=== PATIENT | female | born 1990 | race Caucasian/White ===

== ENCOUNTER → 2016-08-16 | Outpatient (CLI) | payer BC ==
[~2016-08-16] MED LIST: BACL10TA PO; ERGO5000 PO; GABA300C2 PO; IBUP200C PO; IMIT50TA PO; NEUR600T PO; NICO14PA EXT; ORTH7TAB PO; TRAZ10TA PO; TYLE325T5 PO; [UNRECOGNIZED DRUG - CODE] PO; [UNRECOGNIZED DRUG - OTHER] PO
[2016-08-16 16:57] LABS: BASO # 0.1 K/mm3 (0.0-0.2); BASO % 1.2 % (0.0-1.0); EOS # 0.2 K/mm3 (0.0-0.50); EOS % 2.6 % (0.0-3.0); LARGE UNSTAINED CELL # 0.1 K/mm3 (0.0-0.4); LARGE UNSTAINED CELL % 1.2 % (0.0-4.0); LYMPH # 2.8 K/mm3 (1.5-6.5); LYMPH % 42.4 % (24.0-44.0); MEAN CORPUSCULAR HEMOGLOBIN 31.8 pg (27.0-33.0); MEAN CORPUSCULAR HGB CONC 33.4 g/dl (32.0-36.5); MEAN CORPUSCULAR VOLUME 95.2 fl (80.0-96.0); MONO # 0.4 K/mm3 (0.0-0.8); MONO % 5.4 % (0.0-5.0); NEUTROPHILS % 47.2 % (36.0-66.0); PLATELET COUNT, AUTOMATED 164 k/mm3 (150-450); RED CELL DISTRIBUTION WIDTH 12.7 % (11.5-14.5); WHITE BLOOD COUNT 6.4 K/mm3 (4.0-10.0)
[2016-08-16 17:16] LABS: ALBUMIN 4.2 GM/DL (3.2-5.2); ALBUMIN/GLOBULIN RATIO 1.68 (1.00-1.93); ALKALINE PHOSPHATASE 66 U/L (45-117); ALT/SGPT 19 U/L (12-78); ANION GAP 7 MEQ/L (8-16); AST/SGOT 7 U/L (15-37); BILIRUBIN,TOTAL 0.2 MG/DL (0.2-1.0); BLOOD UREA NITROGEN 12 MG/DL (7-18); CARBON DIOXIDE LEVEL 27 MEQ/L (21-32); CHLORIDE LEVEL 110 MEQ/L (98-107); CREATININE FOR GFR 0.85 MG/DL (0.55-1.02); GLOMERULAR FILTRATION RATE > 60.0 (>60); GLUCOSE, FASTING 83 MG/DL (70-105); POTASSIUM SERUM 3.8 MEQ/L (3.5-5.1); SODIUM LEVEL 144 MEQ/L (136-145); TOTAL PROTEIN 6.7 GM/DL (6.4-8.2)
[2016-08-16 17:42] LABS: VITAMIN B12 LEVEL 301 PG/ML (247-911)
--- NOTE | 2016-08-16 20:44 | REP ---
LUMBAR SPINE, COMPLETE: 08/16/2016. Clinical history: Acute left-sided low back pain. No prior study. Findings: Five views are provided. Pedicles, spinous and transverse processes are intact without scoliosis. SI joints, sacral ala and foramina were unremarkable. Posterior rib articulations in the lower thoracic region are normal. I see no spondylolysis or spondylolisthesis. The normal lordosis is maintained. There is no compression fracture, disc space narrowing or destructive lesion. Impression: 1. Negative lumbar spine series. Signed by Beto Wilkes MD 08/17/2016 08:37 A
[2016-08-17 11:22] LABS: PRETREATED FOLATE FOR RBCFOL 8.3 NG/ML
== END ==
LOC: M LAB 16:26
PROVIDERS: ATTEND Physician Assistant Medical
DX: E55.9 Vitamin D deficiency, unspecified (principal)

== ENCOUNTER → 2016-10-27 | Outpatient (CLI) | payer BC | LOC: M RAD 12:23 | PROVIDERS: ATTEND Physician Assistant Medical | DX: M54.30 Sciatica, unspecified side (principal); M54.5 Low back pain ==

== ENCOUNTER → 2016-12-28 | Outpatient (REF) | payer BC ==
[2016-12-28 13:13] LABS: ALBUMIN 4.4 GM/DL (3.2-5.2); ALBUMIN/GLOBULIN RATIO 1.63 (1.00-1.93); ALKALINE PHOSPHATASE 51 U/L (45-117); ALT/SGPT 22 U/L (12-78); ANION GAP 8 MEQ/L (8-16); AST/SGOT 12 U/L (15-37); BILIRUBIN,TOTAL 0.3 MG/DL (0.2-1.0); BLOOD UREA NITROGEN 12 MG/DL (7-18); CALCIUM LEVEL 9.1 MG/DL (8.5-10.1); CARBON DIOXIDE LEVEL 26 MEQ/L (21-32); CHLORIDE LEVEL 108 MEQ/L (98-107); CREATININE FOR GFR 0.82 MG/DL (0.55-1.02); FERRITIN 27 NG/ML (8-252); GLOMERULAR FILTRATION RATE > 60.0 (>60); GLUCOSE, FASTING 74 MG/DL (70-105); SODIUM LEVEL 142 MEQ/L (136-145); TOTAL IRON BINDING CAPACITY 378 UG/DL (250-450); TOTAL PROTEIN 7.1 GM/DL (6.4-8.2)
[2016-12-28 13:20] LABS: VITAMIN B12 LEVEL 474 PG/ML (247-911)
[2016-12-28 13:28] LABS: BASO % 0.4 % (0.0-1.0); EOS # 0.1 K/mm3 (0.0-0.50); LARGE UNSTAINED CELL # 0.1 K/mm3 (0.0-0.4); LARGE UNSTAINED CELL % 1.2 % (0.0-4.0); LYMPH # 2.7 K/mm3 (1.5-6.5); LYMPH % 40.2 % (24.0-44.0); MEAN CORPUSCULAR HEMOGLOBIN 33.1 pg (27.0-33.0); MEAN CORPUSCULAR HGB CONC 34.2 g/dl (32.0-36.5); MEAN CORPUSCULAR VOLUME 96.7 fl (80.0-96.0); MONO # 0.3 K/mm3 (0.0-0.8); MONO % 5.1 % (0.0-5.0); NEUTROPHILS # 3.4 K/mm3 (1.8-7.7); NEUTROPHILS % 51.1 % (36.0-66.0); PLATELET COUNT, AUTOMATED 189 k/mm3 (150-450); RED CELL DISTRIBUTION WIDTH 12.1 % (11.5-14.5); WHITE BLOOD COUNT 6.6 K/mm3 (4.0-10.0)
== END ==
LOC: M SFHCPLAZ 10:27
PROVIDERS: ATTEND Family Medicine
DX: E53.8 Deficiency of other specified B group vitamins (principal); E55.9 Vitamin D deficiency, unspecified

== ENCOUNTER → 2017-02-21 | Outpatient (REF) | payer BC ==
[~2017-02-21] MED LIST changes: +CELE10TA PO; +IBUP-1022 PO; +MEDR1VL IM; +NORT25CA2 PO; +ZOFR4TAB3 PO
[2017-02-21 17:22] LABS: BASO % 0.4 % (0.0-1.0); EOS # 0.1 K/mm3 (0.0-0.50); EOS % 2.1 % (0.0-3.0); LARGE UNSTAINED CELL # 0.1 K/mm3 (0.0-0.4); LARGE UNSTAINED CELL % 1.7 % (0.0-4.0); LYMPH # 2.2 K/mm3 (1.5-6.5); LYMPH % 36.9 % (24.0-44.0); MEAN CORPUSCULAR HEMOGLOBIN 32.9 pg (27.0-33.0); MEAN CORPUSCULAR VOLUME 96.7 fl (80.0-96.0); MONO # 0.4 K/mm3 (0.0-0.8); MONO % 6.2 % (0.0-5.0); NEUTROPHILS # 3.1 K/mm3 (1.8-7.7); NEUTROPHILS % 52.6 % (36.0-66.0); PLATELET COUNT, AUTOMATED 178 k/mm3 (150-450); RED CELL DISTRIBUTION WIDTH 12.1 % (11.5-14.5)
[2017-02-21 17:29] LABS: INR 0.88
[2017-02-21 18:01] LABS: ALBUMIN 4.3 GM/DL (3.2-5.2); ALBUMIN/GLOBULIN RATIO 1.59 (1.00-1.93); ALKALINE PHOSPHATASE 68 U/L (45-117); ALT/SGPT 21 U/L (12-78); ANION GAP 5 MEQ/L (8-16); AST/SGOT 11 U/L (15-37); BILIRUBIN,TOTAL 0.2 MG/DL (0.2-1.0); BLOOD UREA NITROGEN 10 MG/DL (7-18); CALCIUM LEVEL 9.3 MG/DL (8.5-10.1); CARBON DIOXIDE LEVEL 29 MEQ/L (21-32); CHLORIDE LEVEL 109 MEQ/L (98-107); CREATININE FOR GFR 0.71 MG/DL (0.55-1.02); GLOMERULAR FILTRATION RATE > 60.0 (>60); GLUCOSE, FASTING 87 MG/DL (70-105); POTASSIUM SERUM 4.3 MEQ/L (3.5-5.1); SODIUM LEVEL 143 MEQ/L (136-145)
== END ==
LOC: M SFHCPLAZ 15:53
PROVIDERS: ATTEND Family Medicine
DX: M47.816 Spondylosis without myelopathy or radiculopathy, lumbar region (principal)

== ENCOUNTER → 2017-05-07 | Outpatient (REF) | payer BC | LOC: M SFHCPLAZ 11:49 | PROVIDERS: ATTEND Family Medicine | DX: R35.0 Frequency of micturition (principal) ==

== ENCOUNTER → 2017-05-08 | Outpatient (CLI) | payer BC ==
--- NOTE | 2017-05-09 15:31 | REP ---
Clinical: Iliotibial band syndrome. Technique: Neutral and frog lateral views of the left hip. Findings: No acute fracture dislocation. No significant arthritic degenerative changes. No significant joint space narrowing. No spurring or osteophyte formation. No periarticular calcifications. Impression: Normal left hip radiographs. Signed by Eligio Swenson MD 05/09/2017 03:22 P
== END ==
LOC: M RAD 10:15
PROVIDERS: ATTEND Family Medicine
DX: M76.32 Iliotibial band syndrome, left leg (principal)

== ENCOUNTER 2017-05-09 11:21 | Emergency (ER) | payer BC ==
[~2017-05-09] VITALS: Ht 154.9 cm; Wt 65.9 kg
[~2017-05-09 11:21] MED LIST changes: -CELE10TA PO; -IBUP-1022 PO; -MEDR1VL IM; -NORT25CA2 PO; -ZOFR4TAB3 PO
[2017-05-09] MEDS ORDERED: CELE10TA PO (11:30)
[2017-05-09] MEDS ORDERED: IBUP-1022 PO (11:30)
[2017-05-09] MEDS ORDERED: NORT25CA2 PO (11:30)
[2017-05-09] MEDS ORDERED: MEDR1VL IM (11:30)
[2017-05-09] MEDS ORDERED: NS 1,000 ML IV ONE (12:15)
[2017-05-09] MEDS: ACETAMINOPHEN 325 MG TAB PO ONE ×2 (12:15→12:36)
[2017-05-09] MEDS ORDERED: KETOROLAC 30 MG/ML VIAL (J1885) IV ONE (12:15)
[2017-05-09] MEDS ORDERED: METOCLOPRAMIDE INJ 10MG/2ML VIAL (J2765) IV ONE (12:30)
[2017-05-09 12:36] LABS: BASO % 0.3 % (0.0-1.0); EOS # 0.2 10^3/uL (0.0-0.50); IMMATURE GRANULOCYTE % 0.1 % (0-0); LYMPH # 3.1 10^3/uL (1.5-6.5); LYMPH % 38.4 % (24.0-44.0); MEAN CORPUSCULAR HEMOGLOBIN 32.8 pg (27.0-33.0); MEAN CORPUSCULAR HGB CONC 34.1 g/dl (32.0-36.5); MONO # 0.8 10^3/uL (0.0-0.8); MONO % 10.1 % (0.0-5.0); NEUTROPHILS # 3.9 10^3/uL (1.8-7.7); NEUTROPHILS % 49.1 % (36.0-66.0); PLATELET COUNT, AUTOMATED 200 10^3/uL (150-450); RED CELL DISTRIBUTION WIDTH 12.2 % (11.5-14.5)
[2017-05-09 13:11] LABS: ERYTHROCYTE SEDIMENTATION RATE 2 mm/hr (0-20)
[2017-05-09 13:13] LABS: ANION GAP 8 MEQ/L (8-16); BLOOD UREA NITROGEN 12 MG/DL (7-18); CALCIUM LEVEL 9.3 MG/DL (8.5-10.1); CARBON DIOXIDE LEVEL 26 MEQ/L (21-32); CHLORIDE LEVEL 109 MEQ/L (98-107); CREATININE FOR GFR 0.91 MG/DL (0.55-1.02); GLOMERULAR FILTRATION RATE > 60.0 (>60); GLUCOSE, FASTING 86 MG/DL (70-105); POTASSIUM SERUM 3.3 MEQ/L (3.5-5.1); SODIUM LEVEL 143 MEQ/L (136-145)
[2017-05-09] MEDS ORDERED: ONDANSETRON 4MG/2ML VIAL (J2405) IV ONE (14:30)
[2017-05-09] MEDS ORDERED: SUMAtriptan SUCCINATE 6 MG/0.5 ML VIAL SC ONE (15:30)
[2017-05-09] MEDS ORDERED: ACETAMINOPHEN 325 MG TAB PO ONE (15:30)
[2017-05-09 15:44] VITALS: BP 104/67
[2017-05-09] MEDS ORDERED: ZOFR4TAB3 PO (16:07)
== END 2017-05-09 16:13 | disposition home or self-care (01) ==
LOC: M ED 11:21
DX: G43.909 Migraine, unspecified, not intractable, without status migrainosus (principal); Z72.0 Tobacco use
CPT/HCPCS: 80048; 82550; 85025; 85652; 86140; 96361; 96372; 96374; 96375; 99283; J1885; J2405; J2765

== ENCOUNTER → 2017-06-14 | Outpatient (CLI) | payer BC ==
[~2017-06-14] MED LIST changes: +CELE10TA PO; +IBUP-1022 PO; +MEDR1VL IM; +NORT25CA2 PO; +PROHANCE 279.3MG/ML 15ML VIAL (A9576) As Ordered ONE; +ZOFR4TAB3 PO
--- NOTE | 2017-06-14 15:54 | REP ---
MRI THORACIC SPINE WITHOUT AND WITH CONTRAST: HISTORY: Multiple sclerosis. CONTRAST: ProHance 13 mL. COMPARISON: 04/08/2013 The examination is limited secondary to motion. There is no disc bulge or herniation. The spinal canal and the neural foramina are patent. The spinal cord is normal in signal intensity. There is no abnormal enhancement. A hemangioma is present in the T12 vertebral body. Normal signal intensity is present in the remaining thoracic vertebral bodies. IMPRESSION: Normal study. Signed by Masood Montgomery MD 06/14/2017 04:12 P
--- NOTE | 2017-06-14 16:28 | REP ---
MR BRAIN WITHOUT AND WITH CONTRAST: HISTORY: Multiple sclerosis. CONTRAST: ProHance 13 mL. COMPARISON: 05/29/2016 Multiple areas of increased signal intensity on T2-weighted images are present in the periventricular and subcortical white matter as well as corpus callosum. These are unchanged compared to the previous study. There are no new areas of abnormal signal intensity. There are no area of abnormal signal intensity in the brain stem or cerebellum. There is no intraparenchymal hemorrhage, mass or midline shift. An 8 mm pineal cyst is present. The ventricular system is normal in appearance. There is no extracerebral collection. The sinuses are clear. IMPRESSION:The above findings are consistent with multiple sclerosis that are unchanged compared to the previous study. Signed by Masood Montgomery MD 06/14/2017 04:45 P
--- NOTE | 2017-06-14 16:51 | REP ---
MR CERVICAL SPINE WITHOUT AND WITH CONTRAST: HISTORY: Multiple sclerosis. CONTRAST: ProHance 13 mL. COMPARISON: 05/31/2014 A disc bulge is present at the C4-5 level. There is minimal effacement of the thecal sac without spinal cord compression. The C4 neural foramina are patent. A disc bulge is present at the C5-6 level. There is minimal effacement of the thecal sac. Without spinal cord compression. A disc bulge is present at the C6-7 level. There is minimal effacement of the thecal sac without spinal cord compression. The C6 neural foramina are patent. There is no other disc bulge or herniation. The remaining neural foramina are patent. There are 2 small ill-defined areas of increased signal intensity on T2 weighted images in the spinal cord at the C2 and C2-3 levels. The focus is increased signal intensity at the C2-3 level appears unchanged compared to the previous study. The focus at the C2 level was not seen in the previous examination. There is no enhancement with contrast. The spinal cord is normal in size. Normal signal intensity is present in the cervical vertebral bodies. IMPRESSION: 1. There is cervical spondylosis at the C4-5 through C6-7 levels without spinal cord compression. The disc bulge at the C6-7 level is a new finding. 1. There are two small ill-defined area of increased signal intensity in the spinal cord at the C2 and C2-3 level. The lesion at the C2-3 level is unchanged in size. The lesion at the C2 level was not seen in the previous examination and represents a new lesion. Signed by Masood Montgomery MD 06/14/2017 04:57 P
== END ==
LOC: M RAD 12:40
PROVIDERS: ATTEND Physician Assistant Medical
DX: G35 Multiple sclerosis (principal); M47.812 Spondylosis without myelopathy or radiculopathy, cervical region; M50.823 Other cervical disc disorders at C6-C7 level; M50.81 Other cervical disc disorders, high cervical region
CPT/HCPCS: 70553; 72156; 72157; A9576

== ENCOUNTER → 2017-07-30 | Outpatient (CLI) | payer BC ==
[~2017-07-30] MED LIST changes: -BACL10TA PO; -CELE10TA PO; -ERGO5000 PO; -GABA300C2 PO; -IBUP-1022 PO; -IBUP200C PO; -IMIT50TA PO; -MEDR1VL IM; -NEUR600T PO; -NICO14PA EXT; -NORT25CA2 PO; -ORTH7TAB PO; +PROHANCE 279.3MG/ML 15ML VIAL (A9576) As Ordered; -PROHANCE 279.3MG/ML 15ML VIAL (A9576) As Ordered ONE; -TRAZ10TA PO; -TYLE325T5 PO; -ZOFR4TAB3 PO; -[UNRECOGNIZED DRUG - CODE] PO; -[UNRECOGNIZED DRUG - OTHER] PO
== END ==
LOC: M RAD 11:12
DX: M79.1 Myalgia (principal); M46.1 Sacroiliitis, not elsewhere classified; M54.16 Radiculopathy, lumbar region; M96.1 Postlaminectomy syndrome, not elsewhere classified; M51.26 Other intervertebral disc displacement, lumbar region; M51.27 Other intervertebral disc displacement, lumbosacral region
CPT/HCPCS: A9576

== ENCOUNTER → 2018-01-09 | Outpatient (REF) | payer BC ==
[2018-01-09 16:42] LABS: BASO % 0.4 % (0.0-1.0); EOS # 0.1 10^3/uL (0.0-0.50); EOS % 1.9 % (0.0-3.0); HEMATOCRIT 43.5 % (36.0-47.0); HEMOGLOBIN 14.7 g/dl (12.0-15.5); IMMATURE GRANULOCYTE % 0.2 % (0-3.0); LYMPH # 2.2 10^3/uL (1.5-6.5); LYMPH % 38.9 % (24.0-44.0); MEAN CORPUSCULAR HGB CONC 33.8 g/dl (32.0-36.5); MEAN CORPUSCULAR VOLUME 94.8 fl (80.0-96.0); MONO # 0.4 10^3/uL (0.0-0.8); MONO % 6.3 % (0.0-5.0); NEUTROPHILS % 52.3 % (36.0-66.0); PLATELET COUNT, AUTOMATED 180 10^3/uL (150-450); RED BLOOD COUNT 4.59 10^6/uL (4.00-5.40); RED CELL DISTRIBUTION WIDTH 12.7 % (11.5-14.5); RETIC HEMOGLOBIN EQUIVALENT 35.9 pg (24-36); RETICULOCYTE # 45.4 10^9/L (17-77); WHITE BLOOD COUNT 5.7 10^3/uL (4.0-10.0)
[2018-01-09 16:46] LABS: PTH INTACT 19.3 PG/ML (18.5-88.0); TOTAL 25(OH) VITAMIN D 17.3 NG/ML (30.0-100.0)
[2018-01-09 16:52] LABS: ALBUMIN 4.5 GM/DL (3.2-5.2); ALBUMIN/GLOBULIN RATIO 1.67 (1.00-1.93); ALKALINE PHOSPHATASE 55 U/L (45-117); ALT/SGPT 22 U/L (12-78); ANION GAP 10 MEQ/L (8-16); AST/SGOT 14 U/L (7-37); BILIRUBIN,TOTAL 0.4 MG/DL (0.2-1.0); BLOOD UREA NITROGEN 11 MG/DL (7-18); CALCIUM LEVEL 8.9 MG/DL (8.5-10.1); CARBON DIOXIDE LEVEL 26 MEQ/L (21-32); CHLORIDE LEVEL 107 MEQ/L (98-107); CHOLESTEROL LEVEL 128 MG/DL (<200); CHOLESTEROL RISK RATIO 3.047 (<5); CREATININE FOR GFR 0.82 MG/DL (0.55-1.30); FREE T4 1.01 NG/DL (0.76-1.46); GLOMERULAR FILTRATION RATE > 60.0 (>60); GLUCOSE, FASTING 78 MG/DL (70-100); HDL CHOLESTEROL 42 MG/DL (>40); LDL CHOLESTEROL 72.6 MG/DL (<100); LIPASE 72 U/L (73-393); NON-HDL-C 86 MG/DL; POTASSIUM SERUM 4.1 MEQ/L (3.5-5.1); SODIUM LEVEL 143 MEQ/L (136-145); TOTAL PROTEIN 7.2 GM/DL (6.4-8.2); TRIGLYCERIDES LEVEL 67 MG/DL (<150)
[2018-01-09 16:56] LABS: ESTIMATED AVERAGE GLUCOSE 94 MG/DL (60-110); HEMOGLOBIN A1c 4.9 %
[2018-01-09 18:54] LABS: HEMATOCRIT 43.5 % (36.0-47.0)
[2018-01-10 12:47] LABS: PRETREATED FOLATE FOR RBCFOL 10.1 NG/ML; RBC FOLATE 487.6 NG/ML (280-791)
[2018-01-11 14:10] LABS: H PYLORI SERUM QUANT IgG ABY 0.17 (0.00-0.79)
[2018-01-13 13:04] LABS: ALBUMIN 4.68 GM/DL (3.29-5.55); ALPHA-1-GLOBULIN % 4.2 % (2.9-4.9); ALPHA-2-GLOBULINS % 9.7 % (7.1-11.8); BETA-1-GLOBULINS 0.48 GM/DL (0.28-0.60); BETA-1-GLOBULINS % 6.7 % (4.7-7.2); BETA-2-GLOBULINS 0.38 GM/DL (0.19-0.55); BETA-2-GLOBULINS % 5.3 % (3.2-6.5); GAMMA GLOBULIN % 9.1 % (11.1-18.8); GAMMA GLOBULINS 0.66 GM/DL (0.65-1.58)
== END ==
LOC: M SFHCPLAZ 12:20
DX: R10.13 Epigastric pain (principal); E53.8 Deficiency of other specified B group vitamins; E55.9 Vitamin D deficiency, unspecified; E66.3 Overweight
CPT/HCPCS: 83525

== ENCOUNTER → 2018-02-11 | Outpatient (CLI) | payer BC ==
[~2018-02-11] MED LIST changes: +E-Z-GAS II EFFERVESCENT PACKET (SODIUM BICARB./CITRIC ACID/SIMETHICONE) As Ordered; +E-Z-HD 98% w/w 340GM SUSP BTL As Ordered; +E-Z-PAQUE 96% w/w SUSP 176GM BTL As Ordered; -PROHANCE 279.3MG/ML 15ML VIAL (A9576) As Ordered
== END ==
LOC: M RAD 09:24
DX: R10.13 Epigastric pain (principal)
CPT/HCPCS: 74241

== ENCOUNTER → 2018-03-20 | Outpatient (CLI) | payer BC | LOC: M RAD 06:57 | DX: R10.13 Epigastric pain (principal) | CPT/HCPCS: 76705 ==

== ENCOUNTER → 2018-04-15 | Outpatient (CLI) | payer BC | LOC: M RAD 07:35 | DX: R10.11 Right upper quadrant pain (principal) | CPT/HCPCS: J2805 ==

== ENCOUNTER → 2018-08-04 | Outpatient (CLI) | payer BC ==
[~2018-08-04] MED LIST changes: +BACL10TA PO; +CELE10TA PO; -E-Z-GAS II EFFERVESCENT PACKET (SODIUM BICARB./CITRIC ACID/SIMETHICONE) As Ordered; -E-Z-HD 98% w/w 340GM SUSP BTL As Ordered; -E-Z-PAQUE 96% w/w SUSP 176GM BTL As Ordered; +ERGO5000 PO; +GABA300C2 PO; +IBUP-1022 PO; +IBUP200C PO; +IMIT50TA PO; +MEDR1VL IM; +NEUR600T PO; +NICO14PA EXT; +NORT25CA2 PO; +ORTH7TAB PO; +TRAZ10TA PO; +TYLE325T5 PO; +ZOFR4TAB14 PO; +[UNRECOGNIZED DRUG - CODE] PO; +[UNRECOGNIZED DRUG - OTHER] PO
[2018-08-04 10:47] LABS: BASO % 0.4 % (0.0-1.0); EOS # 0.1 10^3/uL (0.0-0.50); EOS % 1.6 % (0.0-3.0); HEMATOCRIT 43.6 % (36.0-47.0); HEMOGLOBIN 14.5 g/dl (12.0-15.5); LYMPH # 2.7 10^3/uL (1.5-6.5); LYMPH % 36.5 % (24.0-44.0); MEAN CORPUSCULAR HEMOGLOBIN 31.9 pg (27.0-33.0); MEAN CORPUSCULAR HGB CONC 33.3 g/dl (32.0-36.5); MONO # 0.6 10^3/uL (0.0-0.8); MONO % 7.7 % (0.0-5.0); NEUTROPHILS # 3.9 10^3/uL (1.8-7.7); NEUTROPHILS % 53.4 % (36.0-66.0); PLATELET COUNT, AUTOMATED 193 10^3/uL (150-450); RED BLOOD COUNT 4.54 10^6/uL (4.00-5.40); WHITE BLOOD COUNT 7.3 10^3/uL (4.0-10.0)
[2018-08-04 11:18] LABS: ALBUMIN 4.1 GM/DL (3.2-5.2); ALT/SGPT 28 U/L (12-78); BILIRUBIN,TOTAL 0.2 MG/DL (0.2-1.0); BLOOD UREA NITROGEN 14 MG/DL (7-18); CALCIUM LEVEL 8.8 MG/DL (8.5-10.1); CARBON DIOXIDE LEVEL 30 MEQ/L (21-32); CHLORIDE LEVEL 106 MEQ/L (98-107); CHOLESTEROL LEVEL 150 MG/DL (<200); CHOLESTEROL RISK RATIO 2.419 (<5); CREATININE FOR GFR 0.79 MG/DL (0.55-1.30); FREE T4 0.79 NG/DL (0.76-1.46); GLOMERULAR FILTRATION RATE > 60.0 (>60); GLUCOSE, FASTING 118 MG/DL (70-100); HDL CHOLESTEROL 62 MG/DL (>40); LDL CHOLESTEROL 73 MG/DL (<100); NON-HDL-C 88 MG/DL; POTASSIUM SERUM 4.3 MEQ/L (3.5-5.1); SODIUM LEVEL 140 MEQ/L (136-145); TOTAL PROTEIN 6.8 GM/DL (6.4-8.2); TRIGLYCERIDES LEVEL 77 MG/DL (<150)
[2018-08-04 11:41] LABS: HEMOGLOBIN A1c 5.3 %; PTH INTACT 19.7 PG/ML (18.5-88.0); TOTAL 25(OH) VITAMIN D 26.2 NG/ML (30.0-100.0); VITAMIN B12 LEVEL 598 PG/ML (247-911)
== END ==
LOC: M LAB 10:12
PROVIDERS: ATTEND Family Medicine
DX: G35 Multiple sclerosis (principal)

== ENCOUNTER → 2018-08-04 | Outpatient (CLI) | payer BC ==
[2018-08-04 10:48] LABS: BASO % 0.6 % (0.0-1.0); EOS # 0.1 10^3/uL (0.0-0.50); EOS % 1.5 % (0.0-3.0); HEMATOCRIT 42.6 % (36.0-47.0); HEMOGLOBIN 14.3 g/dl (12.0-15.5); LYMPH # 2.7 10^3/uL (1.5-6.5); MEAN CORPUSCULAR HEMOGLOBIN 31.7 pg (27.0-33.0); MEAN CORPUSCULAR HGB CONC 33.6 g/dl (32.0-36.5); MEAN CORPUSCULAR VOLUME 94.5 fl (80.0-96.0); MONO # 0.6 10^3/uL (0.0-0.8); MONO % 7.6 % (0.0-5.0); NEUTROPHILS # 3.8 10^3/uL (1.8-7.7); NEUTROPHILS % 52.9 % (36.0-66.0); PLATELET COUNT, AUTOMATED 202 10^3/uL (150-450); RED BLOOD COUNT 4.51 10^6/uL (4.00-5.40); WHITE BLOOD COUNT 7.2 10^3/uL (4.0-10.0)
[2018-08-04 11:13] LABS: ALBUMIN 4.1 GM/DL (3.2-5.2); ALT/SGPT 27 U/L (12-78); BILIRUBIN,DIRECT < 0.1 MG/DL (0.0-0.2); BILIRUBIN,TOTAL 0.2 MG/DL (0.2-1.0); TOTAL PROTEIN 6.9 GM/DL (6.4-8.2)
== END ==
LOC: M LAB 10:17
PROVIDERS: ATTEND Physician Assistant Medical
DX: G35 Multiple sclerosis (principal)

== ENCOUNTER → 2018-11-20 | Outpatient (CLI) | payer BC ==
[~2018-11-20] MED LIST changes: +NICO14DI20 EXT; -NICO14PA EXT; +TRAZ-164 PO; -TRAZ10TA PO
--- NOTE | 2018-11-20 17:42 | REP ---
REASON: Pain times two months. No priors. No trauma. FINDINGS: No acute fracture or destructive osseous lesion. The mortise is intact. Electronically Signed by Richar Reid DO 11/20/2018 05:58 P
--- NOTE | 2018-11-20 17:56 | REP ---
REASON FOR EXAMINATION: Foot pain times two months. No trauma. PRIORS: None. FINDINGS: The joint spaces are symmetric and relatively well maintained. There is no evidence of acute fracture or destructive osseous lesion. IMPRESSION: Negative. Electronically Signed by Richar Reid DO 11/20/2018 05:59 P
== END ==
LOC: M RAD 16:38
PROVIDERS: ATTEND Family Medicine
DX: S93.492A Sprain of other ligament of left ankle, initial encounter (principal); X58.XXXA Exposure to other specified factors, initial encounter; Y92.89 Other specified places as the place of occurrence of the external cause

== ENCOUNTER → 2019-02-06 | Outpatient (REF) | payer BC ==
[2019-02-06 17:22] LABS: BASO % 0.5 % (0.0-1.0); EOS # 0.1 10^3/uL (0.0-0.50); EOS % 0.8 % (0.0-3.0); HEMATOCRIT 42.8 % (36.0-47.0); HEMOGLOBIN 14.1 g/dl (12.0-15.5); LYMPH # 2.3 10^3/uL (1.5-6.5); LYMPH % 36.1 % (24.0-44.0); MEAN CORPUSCULAR HGB CONC 32.9 g/dl (32.0-36.5); MEAN CORPUSCULAR VOLUME 97.1 fl (80.0-96.0); MONO # 0.8 10^3/uL (0.0-0.8); MONO % 12.5 % (0.0-5.0); NEUTROPHILS # 3.1 10^3/uL (1.8-7.7); NEUTROPHILS % 49.9 % (36.0-66.0); PLATELET COUNT, AUTOMATED 229 10^3/uL (150-450); RED BLOOD COUNT 4.41 10^6/uL (4.00-5.40); WHITE BLOOD COUNT 6.2 10^3/uL (4.0-10.0)
[2019-02-06 17:30] LABS: HEMATOCRIT 42.8 % (36.0-47.0)
[2019-02-06 17:47] LABS: ALBUMIN 4.6 GM/DL (3.2-5.2); ALT/SGPT 47 U/L (12-78); BILIRUBIN,TOTAL 0.7 MG/DL (0.2-1.0); BLOOD UREA NITROGEN 11 MG/DL (7-18); CALCIUM LEVEL 9.6 MG/DL (8.5-10.1); CARBON DIOXIDE LEVEL 29 MEQ/L (21-32); CHLORIDE LEVEL 104 MEQ/L (98-107); CPK CREATINE PHOSPHOKINASE 113 U/L (26-192); CREATININE FOR GFR 0.63 MG/DL (0.55-1.30); GLOMERULAR FILTRATION RATE > 60.0 (>60); GLUCOSE, FASTING 67 MG/DL (70-100); POTASSIUM SERUM 4.2 MEQ/L (3.5-5.1); SODIUM LEVEL 139 MEQ/L (136-145); TOTAL PROTEIN 7.7 GM/DL (6.4-8.2); VALPROIC ACID (DEPAKOTE) 15.7 UG/ML (50.0-100.0)
[2019-02-06 17:57] LABS: PTH INTACT 45.9 PG/ML (18.5-88.0); TOTAL 25(OH) VITAMIN D 27.2 NG/ML (30.0-100.0); VITAMIN B12 LEVEL 434 PG/ML (247-911)
[2019-02-06 19:27] LABS: HEMOGLOBIN A1c 5.3 %
== END ==
LOC: M SFHCPLAZ 16:05
PROVIDERS: ATTEND Family Medicine
DX: E55.9 Vitamin D deficiency, unspecified (principal); E53.8 Deficiency of other specified B group vitamins; G43.009 Migraine without aura, not intractable, without status migrainosus; G35 Multiple sclerosis

== ENCOUNTER → 2019-03-19 | Outpatient (CLI) | payer BC ==
--- NOTE | 2019-03-19 09:37 | REPVR ---
EXAM: MR Head Without Contrast EXAM DATE/TIME: 03/19/2019 8:39 AM CLINICAL HISTORY: 29 years old, female; Condition or disease; Multiple sclerosis; Patient HX: PT has known ms medication changed so annual recheck; Additional info: Ms, MR first, CT second TECHNIQUE: Imaging protocol: MR of the head without contrast. COMPARISON: MRI-Brain W/O FOLL BY WITH 06/14/2017 12:59 PM FINDINGS: Brain: Scattered periventricular deep white matter signal abnormalities as well as signal abnormality at the corpus callosum are over all grossly similar in size and number with slight variation of scan plane. No intracranial hemorrhage. Oval partially mixed signal or icterus sixth of pineal region mass measuring 1.2 CM by 1.1 CM. Ventricles: Normal. No ventriculomegaly. Bones/joints: Slight accentuation of the midline floor of the middle cranial fossa or adjacent perform plate margin in the midline which could reflect prominent cortical bone thickening and is similar the prior MRI. Soft tissues: Normal. Sinuses: Increased T2 signal of ethmoid sinuses. Prominent mucosal thickening of right maxillary sinus. Mastoid air cells: Normal as visualized. No mastoid effusion. Orbits: Unremarkable. Other findings: Limited assessment for enhancement process. IMPRESSION: 1. Similar appearance in size and number of corpus callosum and deep white matter T2 hyperintense signal abnormalities bilaterally. These findings remain consistent with clinical history of multiple sclerosis. Inability assess for a more active process bilateral contrast media. 2. 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 3. Sinusitis. Electronically signed by: Lizet Carcamo On 03/19/2019 09:36:46 AM
--- NOTE | 2019-03-19 10:17 | REP ---
CT LUMBAR SPINE WITHOUT CONTRAST: HISTORY: Lumbar spondylosis. Comparison MRI study of the lumbar spine is from July 30, 2017. MRI FINDINGS: There is a small benign hemangioma again noted in the right side of the T12 vertebral body at the top of the imaging field of view. This is unchanged. Lumbar vertebral body heights are preserved. Alignment is normal. There is evidence of a laminectomy defect on the left at L5. There is evidence of some granulation tissue along the left ventral lateral aspect of the thecal sac at L5-S1 where MRI study showed disc bulging. No new evidence of disc protrusion is appreciated at this level or at L4-5 or L3-4. There is no evidence of spondylolysis or spondylolisthesis. Degenerative disc narrowing is again noted at L5-S1 with some posterior osteophytic ridging. No bony foraminal narrowing is seen. IMPRESSION: Laminectomy defect at L5 on the left. Postoperative changes at L5-S1 with diffuse disc bulging and some left ventral lateral granulation tissue. No other significant finding. Electronically Signed by Yuri Irizarry MD 03/19/2019 04:26 P
== END ==
LOC: M RAD 07:35
PROVIDERS: ATTEND Family Medicine
DX: M47.816 Spondylosis without myelopathy or radiculopathy, lumbar region (principal); G35 Multiple sclerosis; J32.9 Chronic sinusitis, unspecified

== ENCOUNTER → 2019-12-10 | Outpatient (REF) | payer BC ==
[2019-12-10 13:43] LABS: BASO % 0.4 % (0.0-1.0); EOS # 0.1 10^3/uL (0.0-0.5); EOS % 0.9 % (0.0-3.0); HEMATOCRIT 41.4 % (36.0-47.0); HEMOGLOBIN 13.8 g/dl (12.0-15.5); LYMPH # 1.1 10^3/uL (1.5-5.0); LYMPH % 14.5 % (24.0-44.0); MEAN CORPUSCULAR HEMOGLOBIN 31.5 pg (27.0-33.0); MEAN CORPUSCULAR HGB CONC 33.3 g/dl (32.0-36.5); MEAN CORPUSCULAR VOLUME 94.5 fl (80.0-96.0); MONO # 0.5 10^3/uL (0.0-0.8); MONO % 6.8 % (0.0-5.0); NEUTROPHILS # 5.9 10^3/uL (1.5-8.5); PLATELET COUNT, AUTOMATED 195 10^3/uL (150-450); RED BLOOD COUNT 4.38 10^6/uL (4.00-5.40); WHITE BLOOD COUNT 7.6 10^3/uL (4.0-10.0)
[2019-12-10 14:28] LABS: HEMOGLOBIN A1c 5.4 %
[2019-12-10 14:33] LABS: ALBUMIN 4.2 GM/DL (3.2-5.2); ALT/SGPT 20 U/L (12-78); BILIRUBIN,TOTAL 0.6 MG/DL (0.2-1.0); BLOOD UREA NITROGEN 7 MG/DL (7-18); CALCIUM LEVEL 9.5 MG/DL (8.5-10.1); CARBON DIOXIDE LEVEL 28 MEQ/L (21-32); CHLORIDE LEVEL 105 MEQ/L (98-107); CHOLESTEROL LEVEL 136 MG/DL (<200); CREATININE FOR GFR 0.57 MG/DL (0.55-1.30); FREE T4 0.92 NG/DL (0.76-1.46); GLOMERULAR FILTRATION RATE > 60.0 (>60); GLUCOSE, FASTING 76 MG/DL (70-100); HDL CHOLESTEROL 50 MG/DL (>40); LDL CHOLESTEROL 76 MG/DL (<100); NON-HDL-C 86 MG/DL; POTASSIUM SERUM 5.3 MEQ/L (3.5-5.1); PTH INTACT 28.3 PG/ML (18.5-88.0); SODIUM LEVEL 140 MEQ/L (136-145); TOTAL 25(OH) VITAMIN D 22.8 NG/ML (30.0-100.0); TOTAL PROTEIN 7.5 GM/DL (6.4-8.2); TRIGLYCERIDES LEVEL 52 MG/DL (<150); VALPROIC ACID (DEPAKOTE) 50.9 UG/ML (50.0-100.0); VITAMIN B12 LEVEL 451 PG/ML (247-911)
[2019-12-15 11:37] LABS: ALBUMIN 4.76 GM/DL (3.29-5.55); ALBUMIN % 63.5 % (55.8-66.1); ALPHA-1-GLOBULIN % 4.4 % (2.9-4.9); ALPHA-1-GLOBULINS 0.33 GM/DL (0.17-0.41); ALPHA-2-GLOBULINS 0.71 GM/DL (0.42-0.99); ALPHA-2-GLOBULINS % 9.4 % (7.1-11.8); BETA-1-GLOBULINS 0.54 GM/DL (0.28-0.60); BETA-1-GLOBULINS % 7.2 % (4.7-7.2); BETA-2-GLOBULINS 0.41 GM/DL (0.19-0.55); BETA-2-GLOBULINS % 5.5 % (3.2-6.5); GAMMA GLOBULINS 0.75 GM/DL (0.65-1.58)
== END ==
LOC: M SFHCPLAZ 11:18
PROVIDERS: ATTEND Family Medicine
DX: G35 Multiple sclerosis (principal); E53.8 Deficiency of other specified B group vitamins; E55.9 Vitamin D deficiency, unspecified; E66.3 Overweight

== ENCOUNTER → 2019-12-31 | Outpatient (CLI) | payer BC ==
--- NOTE | 2019-12-31 09:24 | REPVR ---
PROCEDURE INFORMATION: Exam: MR Lumbar Spine Without Contrast. Exam date and time: 12/31/2019 8:39 AM Age: 29 years old Clinical indication: Low back pain; Patient HX: PT states chronic lbp for several years, nki, PT states she had her hnp reduced 2 years prior @kristine; Additional info: Lumbar spondylosis TECHNIQUE: Imaging protocol: Multiplanar magnetic resonance images of the lumbar spine without intravenous contrast. COMPARISON: MRI-Spine, L.S. without con 10/27/2016 12:29 PM FINDINGS: Vertebrae: Unremarkable. Spinal cord: Normal signal. No cord compression. L1-L2: No significant disc disease. No significant spinal canal stenosis. No neural foraminal stenosis. L2-L3: No significant disc disease. No significant spinal canal stenosis. No neural foraminal stenosis. L3-L4: There is mild disc bulging. There is facet arthropathy and ligamentum flavum hypertrophy. L4-L5: There is facet arthropathy and ligamentum flavum hypertrophy. L5-S1: There is minimal retrolisthesis at L5/S1. There is disc space narrowing and desiccation. There are extensive degenerative end plate changes at this level. There is a moderate disc/osteophyte complex that flattens the ventral thecal sac. There is a small superimposed broad-based central disc protrusion that abuts both descending S1 nerve roots. There is evidence of prior left-sided hemilaminectomy at this level, please correlate with surgical history. There is facet arthropathy and ligamentum flavum hypertrophy. There is severe bilateral neural foraminal narrowing. There is what likely represents a hemangioma in the T12 vertebra. Soft tissues: Unremarkable. IMPRESSION: 1. Multilevel degenerative changes as described above. Central disc herniation at L5/S1 that abuts both descending S1 nerve roots. Severe bilateral neural foraminal narrowing at this level. 2. Postsurgical changes as described above. Consider postcontrast imaging to help distinguish postsurgical changes from residual/recurrent disc disease. Electronically signed by: Ortega Storm On 12/31/2019 09:24:22 AM
== END ==
LOC: M RAD 07:45
PROVIDERS: ATTEND Family Medicine
DX: M47.816 Spondylosis without myelopathy or radiculopathy, lumbar region (principal); M51.27 Other intervertebral disc displacement, lumbosacral region

== ENCOUNTER → 2020-04-20 | Outpatient (CLI) | payer BC ==
--- NOTE | 2020-04-29 13:15 | REP ---
LEFT SHOULDER SERIES CLINICAL: Left shoulder pain. TECHNIQUE: Internal rotation, external rotation, and Y view of the left shoulder. FINDINGS: Acromioclavicular and glenohumeral joints are intact. No acute fracture or dislocation. No significant arthritic changes. Subacromial space is normal. No periarticular calcifications or loose bodies. IMPRESSION: Normal left shoulder radiographs. MTDD
== END ==
LOC: M RAD 10:20
PROVIDERS: ATTEND Nurse Practitioner Family
DX: M25.512 Pain in left shoulder (principal)

== ENCOUNTER → 2020-05-30 | Outpatient (CLI) | payer BC ==
--- NOTE | 2020-05-30 13:41 | REPPI ---
INDICATION: S63.639A TRAUMATIC RUPTURE OF TENDON OF DISTAL INTERPHALANGE COMPARISON: None. TECHNIQUE: Four views of left 3rd digit performed. FINDINGS: There is a mildly expansile cystic lesion of the distal phalanx. There is a nondisplaced pathologic fracture at this location. There is mild associated soft tissue swelling. The remaining bones and joints appear normal. IMPRESSION: Mildly expansile cystic lesion of the distal phalanx. I would favor this represents a benign lesion given the well defined margins and lack of cortical destruction, it may represent an enchondroma. Differential diagnosis would also include epidermal inclusion cyst or glomus tumor if the nailbed is involved. There is nondisplaced pathologic fracture of the distal phalanx at the site of the bone lesion. <Electronically signed by Yaakov Smith > 05/30/20 [id number]
== END ==
LOC: M PLAIMG 11:02
PROVIDERS: ATTEND Family Medicine
DX: S63.639A Sprain of interphalangeal joint of unspecified finger, initial encounter (principal); W18.30XA Fall on same level, unspecified, initial encounter; Y92.009 Unspecified place in unspecified non-institutional (private) residence as the place of occurrence of the external cause

== ENCOUNTER → 2020-09-16 | Outpatient (REF) | payer BC ==
[2020-09-16 11:55] LABS: BASO % 0.7 % (0.0-1.0); EOS # 0.1 10^3/uL (0.0-0.5); EOS % 2.3 % (0.0-3.0); HEMATOCRIT 37.1 % (36.0-47.0); LYMPH # 1.7 10^3/uL (1.5-5.0); MEAN CORPUSCULAR HEMOGLOBIN 28.8 pg (27.0-33.0); MEAN CORPUSCULAR HGB CONC 32.3 g/dl (32.0-36.5); MONO # 0.5 10^3/uL (0.0-0.8); MONO % 10.4 % (2.0-8.0); NEUTROPHILS % 47.4 % (36.0-66.0); PLATELET COUNT, AUTOMATED 197 10^3/uL (150-450); RED BLOOD COUNT 4.17 10^6/uL (4.00-5.40); WHITE BLOOD COUNT 4.3 10^3/uL (4.0-10.0)
[2020-09-16 12:21] LABS: ALBUMIN 4.3 GM/DL (3.2-5.2); ALT/SGPT 20 U/L (12-78); BILIRUBIN,DIRECT < 0.1 MG/DL (0.0-0.2); BILIRUBIN,TOTAL 0.2 MG/DL (0.2-1.0); TOTAL PROTEIN 7.3 GM/DL (6.4-8.2)
== END ==
LOC: M LABDRAWC 11:26
PROVIDERS: ATTEND Nurse Practitioner Adult Health
DX: G35 Multiple sclerosis (principal)

== ENCOUNTER → 2020-09-20 | Outpatient (REF) | payer BC ==
[2020-09-20 16:53] LABS: ALBUMIN 3.9 GM/DL (3.2-5.2); ALT/SGPT 17 U/L (12-78); BILIRUBIN,TOTAL 0.3 MG/DL (0.2-1.0); BLOOD UREA NITROGEN 10 MG/DL (7-18); CALCIUM LEVEL 9.2 MG/DL (8.5-10.1); CARBON DIOXIDE LEVEL 27 MEQ/L (21-32); CHLORIDE LEVEL 108 MEQ/L (98-107); CK-MB VALUE MASS < 1.0 NG/ML (<3.6); CPK CREATINE PHOSPHOKINASE 90 U/L (26-192); FREE T4 0.93 NG/DL (0.76-1.46); GLOMERULAR FILTRATION RATE > 60.0 (>60); GLUCOSE, FASTING 68 MG/DL (70-100); MB/CK RELATIVE INDEX 1.11 (< OR =4); POTASSIUM SERUM 4.6 MEQ/L (3.5-5.1); SODIUM LEVEL 140 MEQ/L (136-145); THYROID STIMULATING HORMONE 0.708 uIU/ML (0.358-3.740); TOTAL PROTEIN 6.8 GM/DL (6.4-8.2); TROPONIN I < 0.02 NG/ML (< 0.10)
[2020-09-20 16:56] LABS: VITAMIN B12 LEVEL 485 PG/ML (247-911)
== END ==
LOC: M SFHCPLAZ 10:31
PROVIDERS: ATTEND Physician Assistant
DX: R07.9 Chest pain, unspecified (principal); F41.9 Anxiety disorder, unspecified; R00.0 Tachycardia, unspecified; R61 Generalized hyperhidrosis

== ENCOUNTER 2021-01-31 13:38 | Emergency (ER) | payer BC ==
[~2021-01-31] VITALS: Ht 154.9 cm; Wt 77.0 kg
[2021-01-31] MEDS ORDERED: NS 1,000 ML IV ONE (17:25)
[2021-01-31] MEDS ORDERED: diphenhydrAMINE 50MG/ML VIAL (J1200) IV STA (17:48)
[2021-01-31] MEDS ORDERED: METOCLOPRAMIDE INJ 10MG/2ML VIAL (J2765 PER 1) IV ONE (17:50)
[2021-01-31] MEDS ORDERED: DIVA500T9 PO (17:57)
[2021-01-31] MEDS ORDERED: ALPR0.25 PO (17:57)
[2021-01-31] MEDS ORDERED: GABA800T4 PO ×2 (17:57)
[2021-01-31] MEDS ORDERED: VITA100018 PO (17:57)
[2021-01-31] MEDS ORDERED: ERGO500029 PO (17:57)
[2021-01-31] MEDS ORDERED: BACL1TAB9 PO ×2 (17:57)
[2021-01-31] MEDS ORDERED: CITA20TA7 PO (17:57)
[2021-01-31] MEDS ORDERED: DIME240C PO (17:57)
[2021-01-31] MEDS ORDERED: OMEP-221 PO (17:57)
[2021-01-31 18:09] LABS: HEMATOCRIT 36.9 % (36.0-47.0); HEMOGLOBIN 11.9 g/dl (12.0-15.5); MEAN CORPUSCULAR HEMOGLOBIN 28.3 pg (27.0-33.0); MEAN CORPUSCULAR HGB CONC 32.2 g/dl (32.0-36.5); MEAN CORPUSCULAR VOLUME 87.9 fl (80.0-96.0); PLATELET COUNT, AUTOMATED 195 10^3/uL (150-450); WHITE BLOOD COUNT 4.7 10^3/uL (4.0-10.0)
[2021-01-31 18:36] LABS: ACETAMINOPHEN LEVEL < 2.0 UG/ML (10.0-30.0); ALBUMIN 3.8 GM/DL (3.2-5.2); ALT/SGPT 17 U/L (12-78); BILIRUBIN,DIRECT < 0.1 MG/DL (0.0-0.2); BILIRUBIN,TOTAL 0.2 MG/DL (0.2-1.0); BLOOD UREA NITROGEN 10 MG/DL (7-18); CALCIUM LEVEL 8.6 MG/DL (8.5-10.1); CARBON DIOXIDE LEVEL 25 MEQ/L (21-32); CHLORIDE LEVEL 109 MEQ/L (98-107); CK-MB VALUE MASS < 1.0 NG/ML (<3.6); CPK CREATINE PHOSPHOKINASE 122 U/L (26-192); CREATININE FOR GFR 0.56 MG/DL (0.55-1.30); ETHYL ALCOHOL (ETHANOL) < 0.003 % (0.000-0.010); GLOMERULAR FILTRATION RATE > 60.0 (>60); GLUCOSE, FASTING 84 MG/DL (70-100); MB/CK RELATIVE INDEX 0.82 (< OR =4); POTASSIUM SERUM 4.4 MEQ/L (3.5-5.1); SALICYLATE LEVEL 3.9 MG/DL (5.0-30.0); SODIUM LEVEL 141 MEQ/L (136-145); TOTAL PROTEIN 6.8 GM/DL (6.4-8.2); TROPONIN I < 0.02 NG/ML (< 0.10)
[2021-01-31 18:41] LABS: RSV AMPLIFICATION NEGATIVE (NEGATIVE)
[2021-01-31 18:48] LABS: ATYPICAL LYMPH 17 % (0-5); EOSINOPHILS 2 % (0-3); LYMPHOCYTES 31 % (16-44); MONOCYTES 3 % (0-5); NEUTROPHILS 47 % (28-66); PLATELET ESTIMATE NORMAL (NORMAL)
[2021-01-31 19:35] LABS: AMPHETAMINES LEVEL URINE NEGATIVE (NEGATIVE); BARBITURATES URINE NEGATIVE (NEGATIVE); BENZODIAZEPINES URINE NEGATIVE (NEGATIVE); CANNABINOIDS URINE POSITIVE (NEGATIVE); COCAINE METABOLITE URINE NEGATIVE (NEGATIVE); METHADONE URINE NEGATIVE (NEGATIVE); OPIATES URINE NEGATIVE (NEGATIVE); PHENCYCLIDINE URINE NEGATIVE (NEGATIVE)
[2021-01-31] MEDS ORDERED: methylPREDNISolone 1,000 MG, VIAL MATE ADAPTER 1 EACH in NS 250 ML IV ONE (20:45)
[2021-01-31] MEDS ORDERED: PRED10TA2 PO (20:47)
[2021-01-31 22:06] VITALS: BP 119/65
--- NOTE | 2021-02-01 20:04 | ECGEPIP ---
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
== END 2021-01-31 22:28 | disposition home or self-care (01) ==
LOC: M ED 13:38
DX: G35 Multiple sclerosis (principal); G43.909 Migraine, unspecified, not intractable, without status migrainosus; Z79.899 Other long term (current) drug therapy; Z88.2 Allergy status to sulfonamides; Z88.1 Allergy status to other antibiotic agents
CPT/HCPCS: 80048; 80076; 80143; 80307; 81001; 82077; 82550; 82553; 84443; 84484; 85025; 87086; 87631; 93005; 93041; 94760; 96361; 96374; 96375; 99285; J1200; J2765; J2930

== ENCOUNTER → 2021-06-14 | Outpatient (REF) | payer BC ==
[~2021-06-14] MED LIST changes: +ALPR0.25 PO; +BACL1TAB9 PO; +CITA20TA7 PO; +DIME240C PO; +DIVA500T9 PO; +ERGO500029 PO; +GABA800T4 PO; +OMEP-221 PO; +PRED10TA2 PO; +VITA100018 PO
[2021-06-14 16:29] LABS: BASO % 0.4 % (0.0-1.0); EOS # 0.1 10^3/uL (0.0-0.5); EOS % 1.5 % (0.0-3.0); HEMATOCRIT 41.4 % (36.0-47.0); HEMOGLOBIN 13.4 g/dl (12.0-15.5); LYMPH # 2.1 10^3/uL (1.5-5.0); LYMPH % 40.7 % (24.0-44.0); MEAN CORPUSCULAR HEMOGLOBIN 29.1 pg (27.0-33.0); MEAN CORPUSCULAR HGB CONC 32.4 g/dl (32.0-36.5); MEAN CORPUSCULAR VOLUME 89.8 fl (80.0-96.0); MONO # 0.5 10^3/uL (0.0-0.8); MONO % 9.7 % (2.0-8.0); NEUTROPHILS # 2.5 10^3/uL (1.5-8.5); NEUTROPHILS % 47.5 % (36.0-66.0); PLATELET COUNT, AUTOMATED 226 10^3/uL (150-450); RED BLOOD COUNT 4.61 10^6/uL (4.00-5.40); WHITE BLOOD COUNT 5.2 10^3/uL (4.0-10.0)
[2021-06-14 16:59] LABS: ALBUMIN 4.1 GM/DL (3.2-5.2); ALT/SGPT 19 U/L (12-78); BILIRUBIN,TOTAL 0.3 MG/DL (0.2-1.0); BLOOD UREA NITROGEN 7 MG/DL (7-18); CALCIUM LEVEL 9.3 MG/DL (8.5-10.1); CARBON DIOXIDE LEVEL 28 MEQ/L (21-32); CHLORIDE LEVEL 107 MEQ/L (98-107); CREATININE FOR GFR 0.64 MG/DL (0.55-1.30); GLOMERULAR FILTRATION RATE > 60.0 (>60); GLUCOSE, FASTING 89 MG/DL (70-100); POTASSIUM SERUM 5.5 MEQ/L (3.5-5.1); PTH INTACT 33.3 PG/ML (18.5-88.0); SODIUM LEVEL 141 MEQ/L (136-145); THYROID PEROXIDASE ANTIBODY < 28.0 U/ML (<60.0); THYROID STIMULATING HORMONE 0.992 uIU/ML (0.358-3.740); TOTAL 25(OH) VITAMIN D 24.1 NG/ML (30.0-100.0); TOTAL PROTEIN 7.2 GM/DL (6.4-8.2)
[2021-06-14 17:46] LABS: HEMOGLOBIN A1c 5.4 %
[2021-06-14 19:29] LABS: ERYTHROCYTE SEDIMENTATION RATE 2 mm/hr (0-20)
== END ==
LOC: M SFHCPLAZ 10:04
PROVIDERS: ATTEND Family Medicine
DX: R40.0 Somnolence (principal)

== ENCOUNTER → 2022-04-04 | Outpatient (CLI) | payer BC ==
[~2022-04-04] MED LIST changes: -OMEP-221 PO; +OMEP40CA5 PO
== END ==
LOC: M WHC 09:47
PROVIDERS: ATTEND Physician Assistant
DX: N63.23 Unspecified lump in the left breast, lower outer quadrant (principal); N64.4 Mastodynia
CPT/HCPCS: 76642; 77066; G0279

== ENCOUNTER → 2022-04-20 | Outpatient (REF) | payer BC ==
[2022-04-20 11:13] LABS: COLOR, URINE MANUAL YELLOW (YELLOW)
[2022-04-20 11:14] LABS: APPEARANCE, URINE MANUAL CLEAR (CLEAR); BILIRUBIN, URINE MANUAL NEGATIVE (NEGATIVE); BLOOD URINE MANUAL NEGATIVE (NEGATIVE); GLUCOSE, URINE (UA) MANUAL NEGATIVE (NEGATIVE); KETONE, URINE MANUAL NEGATIVE (NEGATIVE); LEUKOCYTE ESTERASE, URINE MAN NEGATIVE (NEGATIVE); NITRITE, URINE MANUAL NEGATIVE (NEGATIVE); PROTEIN, URINE MANUAL NEGATIVE (NEGATIVE); UROBILINOGEN, URINE MANUAL NORMAL (NORMAL)
[2022-04-20 11:20] LABS: BASO % 0.3 % (0.0-1.0); EOS % 1.1 % (0.0-3.0); HEMATOCRIT 42.7 % (36.0-47.0); HEMOGLOBIN 14.2 g/dl (12.0-15.5); LYMPH # 1.1 10^3/uL (1.5-5.0); LYMPH % 29.6 % (24.0-44.0); MEAN CORPUSCULAR HEMOGLOBIN 30.3 pg (27.0-33.0); MEAN CORPUSCULAR HGB CONC 33.3 g/dl (32.0-36.5); MEAN CORPUSCULAR VOLUME 91.2 fl (80.0-96.0); MONO # 0.3 10^3/uL (0.0-0.8); MONO % 8.4 % (2.0-8.0); NEUTROPHILS # 2.3 10^3/uL (1.5-8.5); NEUTROPHILS % 60.3 % (36.0-66.0); PLATELET COUNT, AUTOMATED 173 10^3/uL (150-450); RED BLOOD COUNT 4.68 10^6/uL (4.00-5.40); WHITE BLOOD COUNT 3.8 10^3/uL (4.0-10.0)
[2022-04-20 11:52] LABS: HEMOGLOBIN A1c 4.9 %
[2022-04-20 11:59] LABS: ALBUMIN 4.4 GM/DL (3.2-5.2); ALT/SGPT 24 U/L (12-78); BILIRUBIN,TOTAL 0.4 MG/DL (0.2-1.0); BLOOD UREA NITROGEN 14 MG/DL (7-18); CALCIUM LEVEL 9.3 MG/DL (8.5-10.1); CARBON DIOXIDE LEVEL 24 MEQ/L (21-32); CHLORIDE LEVEL 109 MEQ/L (98-107); CHOLESTEROL LEVEL 147 MG/DL (<200); CHOLESTEROL RISK RATIO 3.195 (<5); CREATININE FOR GFR 0.74 MG/DL (0.55-1.30); FERRITIN 14 NG/ML (8-252); FREE T4 0.83 NG/DL (0.76-1.46); GLOMERULAR FILTRATION RATE > 60.0 (>60); GLUCOSE, FASTING 73 MG/DL (70-100); HDL CHOLESTEROL 46 MG/DL (>40); LDL CHOLESTEROL 92 MG/DL (<100); NON-HDL-C 101 MG/DL; POTASSIUM SERUM 4.1 MEQ/L (3.5-5.1); SODIUM LEVEL 138 MEQ/L (136-145); TOTAL PROTEIN 7.2 GM/DL (6.4-8.2); TRIGLYCERIDES LEVEL 47 MG/DL (<150)
[2022-04-20 12:02] LABS: MALB URINE SIEMENS 7.7 MG/L; MAU/CREAT RATIO 6.6 MCG/MG (0.0-30.0)
[2022-04-20 12:38] LABS: TOTAL 25(OH) VITAMIN D 20.6 NG/ML (30.0-100.0)
[2022-04-20 12:39] LABS: PTH INTACT 14.1 PG/ML (18.5-88.0)
[2022-04-20 12:41] LABS: VITAMIN B12 LEVEL 591 PG/ML (247-911)
== END ==
LOC: M SFHCPLAZ 08:35
PROVIDERS: ATTEND Family Medicine
DX: R10.13 Epigastric pain (principal); E53.8 Deficiency of other specified B group vitamins; E55.9 Vitamin D deficiency, unspecified; E66.3 Overweight; L65.9 Nonscarring hair loss, unspecified

== ENCOUNTER → 2022-08-24 | Outpatient (CLI) | payer BC ==
[2022-08-24 16:13] LABS: BASO % 0.4 % (0.0-1.0); EOS # 0.1 10^3/uL (0.0-0.5); EOS % 0.9 % (0.0-3.0); HEMATOCRIT 43.6 % (36.0-47.0); HEMOGLOBIN 14.3 g/dl (12.0-15.5); LYMPH # 1.9 10^3/uL (1.5-5.0); LYMPH % 34.1 % (24.0-44.0); MEAN CORPUSCULAR HEMOGLOBIN 31.4 pg (27.0-33.0); MEAN CORPUSCULAR HGB CONC 32.8 g/dl (32.0-36.5); MEAN CORPUSCULAR VOLUME 95.8 fl (80.0-96.0); MONO # 0.5 10^3/uL (0.0-0.8); MONO % 8.8 % (2.0-8.0); NEUTROPHILS # 3.1 10^3/uL (1.5-8.5); NEUTROPHILS % 55.4 % (36.0-66.0); PLATELET COUNT, AUTOMATED 190 10^3/uL (150-450); RED BLOOD COUNT 4.55 10^6/uL (4.00-5.40); WHITE BLOOD COUNT 5.6 10^3/uL (4.0-10.0)
[2022-08-24 16:22] LABS: HEMATOCRIT 43.6 % (36.0-47.0)
[2022-08-24 16:28] LABS: VALPROIC ACID (DEPAKOTE) < 3.0 UG/ML (50.0-100.0)
[2022-08-24 16:32] LABS: FERRITIN 17.4 NG/ML (7.3-270.7)
== END ==
LOC: M PLALAB 14:14
PROVIDERS: ATTEND Family Medicine
DX: D50.9 Iron deficiency anemia, unspecified (principal); L65.9 Nonscarring hair loss, unspecified; R40.0 Somnolence

== ENCOUNTER → 2022-10-24 | Outpatient (CLI) | payer BC ==
[~2022-10-24] MED LIST changes: +PROHANCE 279.3MG/ML 15ML VIAL As Ordered ONE
== END ==
LOC: M RAD 16:23
PROVIDERS: ATTEND Physician Assistant
DX: G35 Multiple sclerosis (principal); R51.9 Headache, unspecified; M99.81 Other biomechanical lesions of cervical region
CPT/HCPCS: 70553; A9576

== ENCOUNTER → 2022-10-25 | Outpatient (CLI) | payer BC ==
[~2022-10-25] MED LIST changes: -PROHANCE 279.3MG/ML 15ML VIAL As Ordered ONE
== END ==
LOC: M PLARAD 10:21
PROVIDERS: ATTEND Physician Assistant
DX: R51.9 Headache, unspecified (principal); R53.83 Other fatigue; M62.838 Other muscle spasm; G35 Multiple sclerosis; N88.9 Noninflammatory disorder of cervix uteri, unspecified

== ENCOUNTER → 2022-12-13 | Outpatient (CLI) | payer BC ==
[2022-12-13 09:49] LABS: BASO % 0.4 % (0.0-1.0); EOS # 0.1 10^3/uL (0.0-0.5); EOS % 1.3 % (0.0-3.0); LYMPH # 1.6 10^3/uL (1.5-5.0); LYMPH % 33.8 % (24.0-44.0); MEAN CORPUSCULAR HEMOGLOBIN 31.4 pg (27.0-33.0); MEAN CORPUSCULAR HGB CONC 34.1 g/dl (32.0-36.5); MEAN CORPUSCULAR VOLUME 92.1 fl (80.0-96.0); MONO # 0.4 10^3/uL (0.0-0.8); MONO % 8.3 % (2.0-8.0); NEUTROPHILS # 2.6 10^3/uL (1.5-8.5); PLATELET COUNT, AUTOMATED 195 10^3/uL (150-450); RED BLOOD COUNT 4.78 10^6/uL (4.00-5.40); WHITE BLOOD COUNT 4.7 10^3/uL (4.0-10.0)
[2022-12-13 10:09] LABS: ERYTHROCYTE SEDIMENTATION RATE < 1 mm/hr (0-20)
[2022-12-13 10:11] LABS: C REACTIVE PROTEIN QUANTITATIV < 0.40 MG/DL (<1.0)
[2022-12-13 10:16] LABS: FERRITIN 9.7 NG/ML (7.3-270.7)
== END ==
LOC: M RAD 08:39
PROVIDERS: ATTEND Family Medicine
DX: E53.8 Deficiency of other specified B group vitamins (principal); D50.9 Iron deficiency anemia, unspecified; M47.817 Spondylosis without myelopathy or radiculopathy, lumbosacral region

== ENCOUNTER → 2023-01-01 | Outpatient (CLI) | payer BC | LOC: M RAD 11:43 | PROVIDERS: ATTEND Nurse Practitioner Family | DX: R10.2 Pelvic and perineal pain (principal) ==

== ENCOUNTER → 2023-05-09 | Outpatient (REF) | payer BC ==
[2023-05-09 18:31] LABS: BASO % 0.5 % (0.0-1.0); EOS # 0.1 10^3/uL (0.0-0.5); EOS % 1.4 % (0.0-3.0); LYMPH # 1.5 10^3/uL (1.5-5.0); LYMPH % 36.2 % (24.0-44.0); MEAN CORPUSCULAR HEMOGLOBIN 30.5 pg (27.0-33.0); MEAN CORPUSCULAR HGB CONC 33.3 g/dl (32.0-36.5); MEAN CORPUSCULAR VOLUME 91.5 fl (80.0-96.0); MONO # 0.3 10^3/uL (0.0-0.8); MONO % 8.1 % (2.0-8.0); NEUTROPHILS # 2.3 10^3/uL (1.5-8.5); NEUTROPHILS % 53.6 % (36.0-66.0); PLATELET COUNT, AUTOMATED 217 10^3/uL (150-450); RED BLOOD COUNT 4.59 10^6/uL (4.00-5.40); WHITE BLOOD COUNT 4.2 10^3/uL (4.0-10.0)
[2023-05-09 18:44] LABS: ALBUMIN 4.4 G/DL (3.2-5.2); ALKALINE PHOSPHATASE 59 U/L (46-116); ALT/SGPT 31 U/L (7.0-40); AST/SGOT 12 U/L (<34); BILIRUBIN,TOTAL 0.3 MG/DL (0.3-1.2); BLOOD UREA NITROGEN 17 MG/DL (9-23); CALCIUM LEVEL 9.6 MG/DL (8.5-10.1); CARBON DIOXIDE LEVEL 22 MMOL/L (20-31); CHLORIDE LEVEL 113 MMOL/L (98-107); CHOLESTEROL LEVEL 139 MG/DL (<200); CHOLESTEROL RISK RATIO 2.42 (<5); FERRITIN 11.8 NG/ML (7.3-270.7); GLOMERULAR FILTRATION RATE > 60.0 (>60); GLUCOSE, FASTING 107 MG/DL (60-100); HDL CHOLESTEROL 57.4 MG/DL (>40); LDL CHOLESTEROL 72.2 MG/DL (<100); NON-HDL-C 81.6 MG/DL; POTASSIUM SERUM 4.8 MMOL/L (3.5-5.1); PTH INTACT 28.9 PG/ML (18.5-88.0); SODIUM LEVEL 143 MMOL/L (136-145); TOTAL 25(OH) VITAMIN D 20.1 NG/ML (20.0-100.0); TOTAL PROTEIN 6.8 G/DL (5.7-8.2); TRIGLYCERIDES LEVEL 47 MG/DL (<150); VITAMIN B12 LEVEL 719 PG/ML (211-911)
[2023-05-12 13:07] LABS: APOLIPOPROTEIN B/A-1 RATIO 0.5 ratio (0.0-0.6); SOLUBLE TRANSFERRIN RECEPTOR 26.4 nmol/L (12.2-27.3)
== END ==
LOC: M SFHCCLAY 09:54
PROVIDERS: ATTEND Family Medicine
DX: D50.9 Iron deficiency anemia, unspecified (principal); E55.9 Vitamin D deficiency, unspecified; F17.200 Nicotine dependence, unspecified, uncomplicated

== ENCOUNTER → 2023-05-22 | Outpatient (CLI) | payer BC | LOC: M PLAIMG 08:33 | PROVIDERS: ATTEND Family Medicine | DX: M47.816 Spondylosis without myelopathy or radiculopathy, lumbar region (principal) ==

== ENCOUNTER → 2023-08-22 | Outpatient (CLI) | payer BC ==
[~2023-08-22] MED LIST changes: +PROHANCE 279.3MG/ML 15ML VIAL ONE
== END ==
LOC: M PLAIMG 13:45
PROVIDERS: ATTEND Physician Assistant Medical
DX: G35 Multiple sclerosis (principal); M47.812 Spondylosis without myelopathy or radiculopathy, cervical region; M50.31 Other cervical disc degeneration, high cervical region; M50.321 Other cervical disc degeneration at C4-C5 level; M50.322 Other cervical disc degeneration at C5-C6 level; M50.323 Other cervical disc degeneration at C6-C7 level; M50.33 Other cervical disc degeneration, cervicothoracic region
CPT/HCPCS: 70553; 72156; A9576

== ENCOUNTER → 2023-08-30 | Outpatient (REF) | payer BC ==
[~2023-08-30] MED LIST changes: -PROHANCE 279.3MG/ML 15ML VIAL ONE
== END ==
LOC: M SFHCPLAZ 12:25
PROVIDERS: ATTEND Family Medicine
DX: D50.9 Iron deficiency anemia, unspecified (principal); E53.8 Deficiency of other specified B group vitamins

== ENCOUNTER → 2023-10-10 | Outpatient (REF) | payer BC | LOC: M SFHCPLAZ 16:45 | PROVIDERS: ATTEND Physician Assistant | DX: J02.9 Acute pharyngitis, unspecified (principal) ==

== ENCOUNTER → 2023-12-27 | Outpatient (REF) | payer BC | LOC: M SFHCPLAZ 17:37 | PROVIDERS: ATTEND Family Medicine | DX: D50.9 Iron deficiency anemia, unspecified (principal); E53.8 Deficiency of other specified B group vitamins; G43.009 Migraine without aura, not intractable, without status migrainosus; Z53.9 Procedure and treatment not carried out, unspecified reason ==

== ENCOUNTER → 2024-02-03 | Outpatient (CLI) | payer BC | LOC: M PAIN 08:00 | PROVIDERS: ATTEND Nurse Practitioner Family | DX: M96.1 Postlaminectomy syndrome, not elsewhere classified (principal); M51.16 Intervertebral disc disorders with radiculopathy, lumbar region; F41.1 Generalized anxiety disorder; F33.9 Major depressive disorder, recurrent, unspecified; G47.33 Obstructive sleep apnea (adult) (pediatric); M47.812 Spondylosis without myelopathy or radiculopathy, cervical region; G35 Multiple sclerosis; J45.40 Moderate persistent asthma, uncomplicated; Z79.899 Other long term (current) drug therapy; Z88.1 Allergy status to other antibiotic agents; Z88.2 Allergy status to sulfonamides ==

== ENCOUNTER → 2024-03-31 | Outpatient (CLI) | payer BC ==
[~2024-03-31] MED LIST changes: +GABA-1635 PO; -GABA800T4 PO; +ISOVUE-M 300 61% 15ML VIAL As Ordered ONE; +LIDOCAINE 1% SDV 30ML VIAL As Ordered ONE; +NORCO, ANEXSIA 5/325MG TABLET (HYDROcodone/ACETAMINOPHEN) As Ordered ONE; +dexAMETHasone 10MG/1ML VIAL PRES.FREE As Ordered ONE; +diazePAM 5MG TABLET As Ordered ONE
== END ==
LOC: M PAIN 11:15
PROVIDERS: ATTEND Anesthesiology
DX: M51.16 Intervertebral disc disorders with radiculopathy, lumbar region (principal); G89.29 Other chronic pain; G43.009 Migraine without aura, not intractable, without status migrainosus; F41.1 Generalized anxiety disorder; F33.9 Major depressive disorder, recurrent, unspecified; J45.40 Moderate persistent asthma, uncomplicated; M47.812 Spondylosis without myelopathy or radiculopathy, cervical region; G47.33 Obstructive sleep apnea (adult) (pediatric); Z79.899 Other long term (current) drug therapy; Z88.2 Allergy status to sulfonamides; Z88.1 Allergy status to other antibiotic agents
CPT/HCPCS: 62323; J1100; Q9967

== ENCOUNTER → 2024-04-30 | Outpatient (CLI) | payer BC ==
[~2024-04-30] MED LIST changes: -ISOVUE-M 300 61% 15ML VIAL As Ordered ONE; -LIDOCAINE 1% SDV 30ML VIAL As Ordered ONE; -NORCO, ANEXSIA 5/325MG TABLET (HYDROcodone/ACETAMINOPHEN) As Ordered ONE; -dexAMETHasone 10MG/1ML VIAL PRES.FREE As Ordered ONE; -diazePAM 5MG TABLET As Ordered ONE
== END ==
LOC: M PAIN 10:00
PROVIDERS: ATTEND Nurse Practitioner Family
DX: M79.10 Myalgia, unspecified site (principal); Z53.9 Procedure and treatment not carried out, unspecified reason

== ENCOUNTER → 2024-05-04 | Outpatient (CLI) | payer BC | LOC: M PAIN 17:30 | PROVIDERS: ATTEND Nurse Practitioner Family | DX: M79.18 Myalgia, other site (principal); G89.29 Other chronic pain; G43.009 Migraine without aura, not intractable, without status migrainosus; L70.0 Acne vulgaris; F41.1 Generalized anxiety disorder; F33.9 Major depressive disorder, recurrent, unspecified; J45.40 Moderate persistent asthma, uncomplicated; M47.812 Spondylosis without myelopathy or radiculopathy, cervical region; G47.33 Obstructive sleep apnea (adult) (pediatric); G35 Multiple sclerosis; Z79.899 Other long term (current) drug therapy; Z88.1 Allergy status to other antibiotic agents; Z88.2 Allergy status to sulfonamides ==

== ENCOUNTER → 2024-10-28 | Outpatient (CLI) | payer BC ==
[2024-10-28 15:42] LABS: BLOOD UREA NITROGEN 11 MG/DL (9-23); C REACTIVE PROTEIN QUANTITATIV < 0.50 MG/DL (<1.0); CALCIUM LEVEL 9.7 MG/DL (8.5-10.1); CARBON DIOXIDE LEVEL 26 MMOL/L (20-31); CHLORIDE LEVEL 110 MMOL/L (98-107); CREATININE FOR GFR 0.68 MG/DL (0.55-1.30); GLOMERULAR FILTRATION RATE > 60.0 (>60); GLUCOSE, FASTING 112 MG/DL (60-100); POTASSIUM SERUM 4.9 MMOL/L (3.5-5.1); SODIUM LEVEL 142 MMOL/L (136-145)
[2024-10-28 15:48] LABS: BASO % 0.5 % (0.0-1.0); EOS # 0.1 10^3/uL (0.0-0.5); EOS % 1.3 % (0.0-3.0); HEMATOCRIT 44.6 % (36.0-47.0); HEMOGLOBIN 14.7 g/dl (12.0-15.5); LYMPH # 2.4 10^3/uL (1.5-5.0); LYMPH % 38.9 % (24.0-44.0); MEAN CORPUSCULAR HEMOGLOBIN 30.8 pg (27.0-33.0); MEAN CORPUSCULAR VOLUME 93.5 fl (80.0-96.0); MONO # 0.6 10^3/uL (0.0-0.8); MONO % 9.6 % (2.0-8.0); NEUTROPHILS # 3.1 10^3/uL (1.5-8.5); NEUTROPHILS % 49.4 % (36.0-66.0); PLATELET COUNT, AUTOMATED 235 10^3/uL (150-450); RED BLOOD COUNT 4.77 10^6/uL (4.00-5.40); WHITE BLOOD COUNT 6.2 10^3/uL (4.0-10.0)
== END ==
LOC: M PLALAB 12:36
PROVIDERS: ATTEND Student in an Organized Health Care Education/Training Program
DX: K57.92 Diverticulitis of intestine, part unspecified, without perforation or abscess without bleeding (principal)

== ENCOUNTER → 2024-10-29 | Outpatient (CLI) | payer BC ==
[~2024-10-29] MED LIST changes: +ISOVUE-370 76% 100ML VIAL As Ordered ONE
== END ==
LOC: M RAD 12:20
PROVIDERS: ATTEND Student in an Organized Health Care Education/Training Program
DX: K57.92 Diverticulitis of intestine, part unspecified, without perforation or abscess without bleeding (principal)
CPT/HCPCS: 74177; Q9967

== ENCOUNTER → 2024-11-16 | Outpatient (CLI) | payer BC ==
[~2024-11-16] MED LIST changes: -ISOVUE-370 76% 100ML VIAL As Ordered ONE
== END ==
LOC: M PLAIMG 06:56
PROVIDERS: ATTEND Orthopaedic Surgery Hand Surgery
DX: S89.92XA Unspecified injury of left lower leg, initial encounter (principal); M67.52 Plica syndrome, left knee

== ENCOUNTER → 2025-03-23 | Outpatient (CLI) | payer BC ==
[~2025-03-23] MED LIST changes: -IBUP-1022 PO; +IBUP600T42 PO
== END ==
LOC: M PLAIMG 07:39
PROVIDERS: ATTEND Family Medicine
DX: M47.816 Spondylosis without myelopathy or radiculopathy, lumbar region (principal); M51.26 Other intervertebral disc displacement, lumbar region

== ENCOUNTER 2025-06-12 10:36 | Emergency (ER) | payer BC ==
[~2025-06-12] VITALS: Ht 154.9 cm; Wt 90.1 kg
[2025-06-12 10:40] VITALS: BP 125/70; TEMP 98.2; O2SAT 98
== END 2025-06-12 11:24 | disposition home or self-care (01) ==
LOC: M ED 10:36
DX: M25.571 Pain in right ankle and joints of right foot (principal); G35.D Multiple sclerosis, unspecified; Z88.1 Allergy status to other antibiotic agents; Z88.2 Allergy status to sulfonamides; Z88.8 Allergy status to other drugs, medicaments and biological substances; Z79.2 Long term (current) use of antibiotics; Z79.899 Other long term (current) drug therapy

== ENCOUNTER → 2025-07-02 | Outpatient (CLI) | payer BC | LOC: M PLAIMG 14:15 | PROVIDERS: ATTEND Family Medicine | DX: M47.816 Spondylosis without myelopathy or radiculopathy, lumbar region (principal) ==

== ENCOUNTER 2025-07-28 10:27 | Emergency (ER) | payer BC ==
[~2025-07-28] VITALS: Ht 157.5 cm; Wt 87.7 kg
[2025-07-28 10:31] VITALS: TEMP 96.8
[2025-07-28] MEDS ORDERED: AIMO70IN (10:41)
[2025-07-28 13:57] VITALS: O2SAT 97
[2025-07-28 14:00] VITALS: BP 110/73
[2025-07-28] MEDS ORDERED: diphenhydrAMINE 50 MG/ML VIAL IV STA (14:18)
[2025-07-28] MEDS ORDERED: KETOROLAC 30 MG/ML 1 ML VIAL IV ONE (14:20)
[2025-07-28] MEDS ORDERED: NS (Normal Saline) 0.9% 1,000 ML IV ONE (14:20)
== END 2025-07-28 14:39 | disposition left against medical advice (07) ==
LOC: M ED 10:27
DX: R51.9 Headache, unspecified (principal); G35.D Multiple sclerosis, unspecified; Z88.1 Allergy status to other antibiotic agents; Z88.2 Allergy status to sulfonamides; Z88.8 Allergy status to other drugs, medicaments and biological substances; Z79.2 Long term (current) use of antibiotics; Z79.899 Other long term (current) drug therapy; Z53.9 Procedure and treatment not carried out, unspecified reason